=== PATIENT | female | born 1995 | race Two or more races ===

== ENCOUNTER 2024-02-01 11:05 | Emergency (ER) | payer OTHER ==
[~2024-02-01] VITALS: Ht 157.5 cm; Wt 62.6 kg
[2024-02-01 11:12] VITALS: BP 119/79; TEMP 98.6; O2SAT 100
[2024-02-01] MEDS: AZITHROMYCIN 250 MG TABLET PO ONE (12:39)
== END 2024-02-01 12:00 | disposition home or self-care (01) ==
LOC: ER 11:37
DX: Z20.811 Contact with and (suspected) exposure to meningococcus (principal)